=== PATIENT | male | born 1995 | race Two or more races ===

== ENCOUNTER 2023-07-02 17:43 | Emergency (ER) | payer SELFPAY ==
[~2023-07-02] VITALS: Ht 165.1 cm; Wt 130.5 kg
[2023-07-02 18:16] VITALS: BP 159/81; PULSE 111; RESP 18; TEMP 98.1; O2SAT 98
[2023-07-02] MEDS ORDERED: IBUP-1456 PO (18:52)
[2023-07-02] MEDS ORDERED: AMOX875T4 PO (18:52)
[2023-07-02] MEDS ORDERED: TETANUS-DIPTH-ACEL PERTUSSIS 0.5ML SYR Tdap IM ONE (19:00)
== END 2023-07-02 19:02 | disposition home or self-care (01) ==
LOC: ER 17:43
DX: S61.532A Puncture wound without foreign body of left wrist, initial encounter (principal); Z79.899 Other long term (current) drug therapy; W55.01XA Bitten by cat, initial encounter; Y93.89 Activity, other specified; Y92.89 Other specified places as the place of occurrence of the external cause; Y99.8 Other external cause status
CPT/HCPCS: 90471; 90715